=== PATIENT | male | born 1955 | race Caucasian/White ===

== ENCOUNTER → 2023-09-09 | Outpatient (CLI) | payer MEDICARE, BC ==
--- NOTE | 2023-09-09 12:47 | XR ---
EXAMINATION TYPE: XR shoulder complete 3 views LT DATE OF EXAM: 09/09/2023 Comparison: None Clinical History: 68-year-old male generalized shoulder pain and limited range of motion, [id number] LT S HLD PAIN Findings: Mild degenerative joint space narrowing at the AC joint. Acromial space is observed. No acute fractur e, subluxation, dislocation. Impression: Mild AC joint OA. No acute osseous abnormality seen.
== END | disposition home or self-care (01) ==
LOC: RADXRYALE 10:45
PROVIDERS: ATTEND Physician Assistant Medical
DX: M19.012 Primary osteoarthritis, left shoulder (principal)